=== PATIENT | male | born 1970 | race Caucasian/White ===

== ENCOUNTER → 2018-06-22 07:42 | Day surgery (SDC) | payer BC ==
[~2018-06-22 07:42] MED LIST: Dexamethasone IV* 4 MG/ML 1 ML (4 MG) ONE; Levofloxacin 750 MG IVPREMIX(* 750 MG/150 ML BAG ONE; Midazolam* 1 MG/ML 5 ML VIAL (5 MG) ONE; Naloxone* 0.4 MG/ML 1 ML VIAL IV PRN; Ondansetron INJ* 2 MG/ML VIAL IV PRN; Ondansetron INJ* 2 MG/ML VIAL ONE; Propofol* 10 MG/ML 20 ML BTL ONE; fentaNYL* 50 MCG/ML 2 ML VIAL (100 MCG VIAL) IV PRN; fentaNYL* 50 MCG/ML 2 ML VIAL (100 MCG VIAL) ONE
--- NOTE | 2018-06-22 08:49 | HP ---
CC: Dr. Naun Perez * HISTORY AND PHYSICAL: DATE OF PLANNED ADMISSION AND SURGERY: 06/22/18. HISTORY OF PRESENT ILLNESS: Mr. Barnett is a 47-year-old white male who is admitted with a proximal left ureteral calculus for cystoscopy, placement of left ureteral stent, possible left urethroscopy, and laser lithotripsy. Mr. Barnett is a known stone former and in January 2014, he required left ureteroscopy and extraction of a left ureteral calculus. He has done well and has had no recurrent renal or ureteral calculi. He presented to our office complaining of 1 week history of recurrent episodes of left flank pain. There was no associated fever or chills, and no voiding symptoms. The patient had a noncontrast CT of the abdomen and pelvis, which showed a 7-mm calculus in the proximal left ureter associated with mild hydronephrosis. There were tiny calcifications in the left kidney, but no other abnormalities. His urinalysis in the office at presentation showed trace blood, was negative otherwise. PAST MEDICAL HISTORY AND SYSTEM REVIEW: He is hypertensive, maintained on enalapril 10 mg daily, and HCTZ 25 mg daily. He is obese, but denies any cardiac or pulmonary diseases. ALLERGIES: He reports he is allergic to PENICILLIN. This was told to him as a child and has not used PENICILLIN since. The patient denies any voiding symptoms. SOCIAL HISTORY: He is a nonsmoker. FAMILY HISTORY: Negative PHYSICAL EXAMINATION GENERAL: He is an obese white male, who is in no pain. VITAL SIGNS: Blood pressure 180/90, but he seemed anxious. LUNGS: Clear. HEART: Regular and rhythmic, no murmurs. ABDOMEN: Soft. No masses. No tenderness. There is mild left CVA tenderness. IMPRESSION: Recurrent episodes of left flank pain secondary to a 7 mm calculus in the proximal left ureter. PLAN/RECOMMENDATIONS: Plan is for cystoscopy and placement of left ureteral stent, in preparation for definitive treatment of the stone. If the calculus is noted to have dropped into the lower half of the ureter, then ureteroscopy and laser lithotripsy will be performed. The patient's blood pressure is going to be rechecked in the preoperative area. If it remains elevated, the patient will need to be referred to his primary care physician for management. [id number]/[facility] #: [id number] [facility]
[2018-06-22 12:58] VITALS: BP 156/97
--- NOTE | 2018-06-22 22:23 | OP ---
DATE OF OPERATION: 06/22/18 [facility] DATE OF : 66 SURGEON: Jason Francisco MD ANESTHESIOLOGIST: Dr. Henrique Curry. ANESTHESIA: General. PRE-OP DIAGNOSIS: Left ureteral calculus (7 mm). POST-OP DIAGNOSIS: Impacted left ureteral calculus (7 mm). OPERATIVE PROCEDURE: 1. Cystoscopy. 2. Left retrograde pyelography. 3. Insertion of left ureteral stent (6-Arabic). INDICATION FOR PROCEDURE: Mr. Barnett is a 47-year-old white male, who is a known stone former, who presented to the office 3 days ago with recurrent episodes of left flank pain. Noncontrast CT of the abdomen and pelvis showed a 7-mm calculus in the proximal to mid left ureter associated with mild-to- moderate hydronephrosis. The patient is brought in today for placement of left ureteral stent and possible left ureteroscopy. PATHOLOGY AT CYSTOSCOPY: The penile and bulbar urethrae looked normal. The prostatic urethra was short and open. Examination of the bladder showed normal bladder mucosa. There were suspicious bladder lesions seen. No calculi or diverticula were noted. Upon left retrograde pyelography, there was a radiopaque calculus that was noted in the mid ureter. The stone was impacted. Following the introduction of the guidewire, the stone migrated into the proximal ureter, collecting system. Retrograde pyelography showed moderate left hydronephrosis. DESCRIPTION OF PROCEDURE: After successful general anesthesia, with the patient in the dorsal lithotomy position and after proper scrubbing and draping , cystoscopy was performed. The bladder was inspected and the above findings were noted. A flexible-tip hybrid wire was then introduced into the left orifice. The wire was held up at the level of L4 where the calculus was noted to be impacted. After some manipulation, the guidewire was successfully introduced into the renal pelvis. At fluoroscopy, the calculus seemed to have migrated proximally. Because of the location of the stone, it was decided just to place a ureteral stent. Retrograde pyelography was performed. A 6-Arabic stent was then placed with the proximal end coiling in the renal pelvis and the distal end coiling inside the bladder. There was good drainage of contrast from the kidney and no extravasation. The patient tolerated the procedure well and left the operating room in good condition. The plan is to obtain a KUB postoperatively. Decision on the definitive treatment of the stone will depend upon its location. [id number]/[facility] #: [id number] GRISELDA
== END | disposition home or self-care (01) ==
LOC: OR 07:42
PROVIDERS: ATTEND Urology
DX: N13.2 Hydronephrosis with renal and ureteral calculous obstruction (principal); I10 Essential (primary) hypertension; E66.9 Obesity, unspecified
CPT/HCPCS: 74018; 74420; C1876; J1100; J2250; J2405; J2704; J3010

== ENCOUNTER 2018-06-29 06:30 | Day surgery (SDC) | payer BC ==
--- NOTE | 2018-06-26 01:02 | HP ---
CC: Dr. Joseph Perez * HISTORY AND PHYSICAL: DATE OF PLANNED ADMISSION AND SURGERY: 06/29/18 HISTORY OF PRESENT ILLNESS: Mr. Barnett is a 47-year-old white male who is admitted with a left renal calculus, status post placement of left ureteral stent, for shock wave lithotripsy of the left renal calculus followed by cystoscopy and removal of the left ureteral stent. Mr. Barnett is a known stone former and had required left ureteroscopy and extraction of a left ureteral calculus in January 2014. He presented to our office last week with 1 week's history of recurrent episodes of left flank pain. Noncontrast CT of the abdomen and pelvis showed a 7-mm calculus in the proximal left ureter associated with mild hydronephrosis. The patient was taken to the operating room and had a cystoscopy and placement of a left ureteral stent. The stone migrated into the lower pole calyx of the left kidney at the time of the procedure and that was confirmed on post op KUB. The patient is now admitted for definitive treatment of the stone and left stent removal. PAST MEDICAL HISTORY: The patient is hypertensive, maintained on enalapril 10 mg daily and HCTZ 25 mg daily. ALLERGIES: The patient reports being allergic to PENICILLIN. He was told of this allergy as a child and he does not know the reaction that he had. FAMILY HISTORY: His family history is negative. SOCIAL HISTORY: The patient is a nonsmoker. He works as a traveler emergency room nurse. REVIEW OF SYSTEMS: He is otherwise in good health. He denies any cardiac or pulmonary diseases or symptoms. PHYSICAL EXAMINATION GENERAL: He is an overweight white male, who is in no pain. VITAL SIGNS: Blood pressure 170/85. LUNGS: Clear. HEART: Regular and rhythmic. No murmurs. ABDOMEN: Soft. No masses, no tenderness, and no CVA tenderness. IMPRESSION: 1. Status post placement of left ureteral stent. 2. A 6- to 7-mm calculus in the lower pole calyx of the left kidney. 3. Hypertension. PLAN: Plan is for shock wave lithotripsy of the left renal calculus followed by cystoscopy and removal of the left ureteral stent. I discussed the above plans in detail with the patient. All his questions were answered. [id number]/[facility] #: [id number] [facility]
[~2018-06-29 06:30] MED LIST changes: +Buffered Lidocaine 0.9% SYRIN* 5 ML/SYR SYRINGE INTRADERM ONE; -Dexamethasone IV* 4 MG/ML 1 ML (4 MG) ONE; +Lactated Ringers 1000 ML Bag* 1,000 ML IV SCH; -Levofloxacin 750 MG IVPREMIX(* 750 MG/150 ML BAG ONE; -Midazolam* 1 MG/ML 5 ML VIAL (5 MG) ONE; -Naloxone* 0.4 MG/ML 1 ML VIAL IV PRN; -Ondansetron INJ* 2 MG/ML VIAL IV PRN; -Ondansetron INJ* 2 MG/ML VIAL ONE; -Propofol* 10 MG/ML 20 ML BTL ONE; +Sodium Citrate/Citric Acid* 15 ML UDC PO ONE; -fentaNYL* 50 MCG/ML 2 ML VIAL (100 MCG VIAL) IV PRN; -fentaNYL* 50 MCG/ML 2 ML VIAL (100 MCG VIAL) ONE
[2018-06-29] MEDS ORDERED: Sodium Citrate/Citric Acid* 15 ML UDC ONE (06:58)
[2018-06-29] MEDS ORDERED: Levofloxacin 750 MG IVPREMIX(* 750 MG/150 ML BAG ONE (06:58)
[2018-06-29] MEDS ORDERED: Ondansetron INJ* 2 MG/ML VIAL IV PRN (07:34)
[2018-06-29] MEDS ORDERED: fentaNYL* 50 MCG/ML 2 ML VIAL (100 MCG VIAL) IV PRN (07:34)
[2018-06-29] MEDS ORDERED: Naloxone* 0.4 MG/ML 1 ML VIAL IV PRN (07:34)
[2018-06-29 09:06] LABS: INR 1.05 (0.77-1.02)
[2018-06-29] MEDS ORDERED: fentaNYL* 50 MCG/ML 2 ML VIAL (100 MCG VIAL) ONE (09:17)
[2018-06-29] MEDS ORDERED: Lidocaine 2% PF * 5 ML VIAL ONE (09:17)
[2018-06-29] MEDS ORDERED: Ondansetron INJ* 2 MG/ML VIAL ONE (09:38)
[2018-06-29] MEDS ORDERED: Propofol* 10 MG/ML 20 ML BTL ONE (09:38)
[2018-06-29] MEDS ORDERED: DiMENhydriNATE IV* 50 MG/ML VIAL ONE (10:38)
[2018-06-29] MEDS ORDERED: Labetalol IV* 5 MG/ML 20 ML VIAL ONE (11:32)
--- NOTE | 2018-06-29 11:59 | OP ---
CC: Dr. Joseph Perez * DATE OF OPERATION: 06/29/18 - [facility] DATE OF : 66 SURGEON: Dr. Francisco. ANESTHESIOLOGIST: Dr. Levi Matson. ANESTHESIA: General. PRE-OP DIAGNOSES: 1. Left renal calculus (7 mm). 2. Status post placement, left ureteral stent. POST-OP DIAGNOSES: 1. Left renal calculus (7 mm). 2. Status post placement, left ureteral stent. OPERATIVE PROCEDURE: 1. Shockwave lithotripsy of left renal calculus. 2. Cystoscopy and removal of left ureteral stent. INDICATIONS FOR PROCEDURE: Mr. Barnett is a 47-year-old white male who presented with an obstructing 7-mm calculus in the proximal left ureter. He had urgent placement of a left ureteral stent. Postoperative KUB showed the stent in good position and stone to have migrated in the lower pole calyx of the left kidney. The patient is now admitted for definitive treatment of the stone. PATHOLOGY: At fluoroscopy, the left ureteral stent was in good position and the calculus was noted in the lower pole calyx of the left kidney. DESCRIPTION OF PROCEDURE: After successful general anesthesia, the patient was placed in the supine position on the shockwave lithotripsy table. The left renal calculus was visualized in both the PA and oblique x-ray views and the position of the patient and of the generator were adjusted to have the stone in the focus of the shock waves. A total of 1500 shocks were then delivered at a rate of 60 shocks per minute. A 3- minute break was taken after the initial 300 shocks to decrease the risk of renal injury. The proper positioning and fragmentation of the stone were monitored periodically. At the completion of the treatment, there was good fragmentation of the stone with its shape taking the shape of the calyx. Decision was made to proceed with stent removal. The patient was prepped and draped for a flexible cystoscopy. Flexible cystoscopy was performed. The stent was grasped and was pulled out intact. The patient tolerated the procedure well and left the operating room in good condition. [id number]/[facility] #: [id number] GRISELDA
[2018-06-29] MEDS ORDERED: hydrALAZINE IV* 20 MG/ML VIAL ONE (12:29)
[2018-06-29 12:55] VITALS: BP 133/84
== END 2018-06-29 12:57 | disposition home or self-care (01) ==
LOC: OR 06:30
PROVIDERS: ATTEND Urology
DX: N20.0 Calculus of kidney (principal); I10 Essential (primary) hypertension; Z88.0 Allergy status to penicillin; R79.1 Abnormal coagulation profile
CPT/HCPCS: 36415; 85610; A9270-GY; J0360; J1240; J2405; J2704; J3010